=== PATIENT | male | born 1940 | race Caucasian/White ===

== ENCOUNTER → 2016-05-20 | Outpatient (CLI) | payer MEDICARE | END | disposition home or self-care (01) | LOC: PCVCCLINIC 09:50 | PROVIDERS: ATTEND Internal Medicine | DX: I48.91 Unspecified atrial fibrillation (principal); E78.5 Hyperlipidemia, unspecified; I71.2 Thoracic aortic aneurysm, without rupture; I10 Essential (primary) hypertension; Z79.01 Long term (current) use of anticoagulants | CPT/HCPCS: 80061; 93005; G0463 ==

== ENCOUNTER → 2016-12-10 | Outpatient (CLI) | payer MEDICARE ==
--- NOTE | 2016-12-10 12:07 | PCVCIMAG ---
APPROVED REPORT Study performed: 12/10/2016 10:48:43 EXAM: Comprehensive 2D, Doppler, and color-flow Echocardiogram Patient Location: Echo lab Status: routine BSA: 2.42 HR: 88 bpmBP: 134/82 mmHg Rhythm: Atrial Fibrillation Other Information Study Quality: Good Indications Atrial Fibrillation Thoracic aneurysm 2D Dimensions LVEF(%): 46.71 (>50%) IVSd: 10.39 (7-11mm)LVOT Diam: 21.81 (18-24mm) LVDd: 55.99 mm PWd: 10.97 (7-11mm)Ascending Ao: 44.51 (22-36mm) LVDs: 42.73 (25-40mm) Left Atrium: 53.86 (27-40mm) Aortic Root: 35.39 mm LV Single Plane 4CH: 51.07 % LV Single Plane 2CH: 54.37 %Hedrick's LVEF: 52.72 % Biplane EF: 53.1 % Volumes Left Atrial Volume (Systole) Single Plane 4CH: 132.04 mLSingle Plane 2CH: 105.17 mL Biplane LA Volume: 119.00 mLLA ESV Index: 49.00 mL/m2 Aortic Valve AoV Peak Abundio.: 1.65 m/s AO Peak Gr.: 11.91 mmHgLVOT Max P.57 mmHg LVOT Max V: 0.76 m/s ZHAO Vmax: 1.72 cm2 AI Vmax: 3.55 m/s AI [place]: 2.19 m/s2 AI PHT: 483.12 ms Mitral Valve MV E Max Abundio.: 1.29 m/s MV Max Abundio.: 5.17 m/s MV Mean Abundio.: 4.14 m/s MV PHT: 46.39 ms MVA (PHT): 4.74 cm2 TDI E/Lateral E': 9.92E/Medial E': 14.33 Medial E' Abundio.: 0.09 m/s Lateral E' Abundio.: 0.13 m/s Pulmonary Valve PV Peak Abudnio.: 0.71 m/sPV Peak Gr.: 2.05 mmHg Tricuspid Valve TR Peak Abundio.: 2.57 m/s TR Peak Gr.: 26.41 mmHg TV Vmax: 0.79 m/sPA Pressure: 34.00 mmHg Left Ventricle The left ventricle is normal size. There is normal LV segmental wall motion. Mild concentric left ventricular hypertrophy. Left ventricular systolic function is normal. LVEF is 50-55%. This study is not technically sufficient to allow evaluation of the LV diastolic function due to atrial fibrillation. Right Ventricle The right ventricle is normal size. The right ventricular systolic function is normal. Atria Left atrium is severely dilated. Right atrium is moderately dilated. Aortic Valve Aortic valve is trileaflet, mildly sclerotic. Mild aortic regurgitation. There is no aortic valvular stenosis. Mitral Valve Mild mitral annular calcification Mild to moderate mitral regurgitation. No evidence of mitral valve stenosis. Tricuspid Valve The tricuspid valve is normal in structure. There is mild tricuspid valve regurgitation noted with a PA pressure of 34 mmHg.. Pulmonic Valve The pulmonary valve is normal in structure. There is no pulmonic valvular regurgitation. Great Vessels The aortic root is normal in size. The ascending aorta is mildly dilated at 4.6 cm. Aortic arch is dilated IVC is normal in size and collapses with >50% inspiration Pericardium There is no pericardial effusion. There is no pleural effusion. <Conclusion> Left ventricular systolic function is normal. There is normal LV segmental wall motion. LVEF 50-55%. Left atrium is severely dilated. Aortic valve is trileaflet, mildly sclerotic, no stenosis. Mild aortic regurgitation. Mild mitral annular calcifiction. Mild to moderate mitral regurgitation. Thoracic aortic aneurysm 4.6cm, unchanged There is no pericardial effusion.
== END | disposition home or self-care (01) ==
LOC: PCVCIMAG 10:16
PROVIDERS: ATTEND Internal Medicine
DX: I71.2 Thoracic aortic aneurysm, without rupture (principal); I08.3 Combined rheumatic disorders of mitral, aortic and tricuspid valves; I48.2 Chronic atrial fibrillation; E78.5 Hyperlipidemia, unspecified; Z79.01 Long term (current) use of anticoagulants; Z86.73 Personal history of transient ischemic attack (TIA), and cerebral infarction without residual deficits
CPT/HCPCS: 80061; 93005; 93306; G0463

== ENCOUNTER → 2017-06-10 | Outpatient (CLI) | payer MEDICARE | END | disposition home or self-care (01) | LOC: PCVCCLINIC 11:32 | DX: I48.2 Chronic atrial fibrillation (principal); I71.2 Thoracic aortic aneurysm, without rupture; E78.5 Hyperlipidemia, unspecified; I65.23 Occlusion and stenosis of bilateral carotid arteries; R94.31 Abnormal electrocardiogram [ECG] [EKG]; Z79.899 Other long term (current) drug therapy | CPT/HCPCS: 80061; 93005; G0463 ==

== ENCOUNTER → 2018-01-11 | Outpatient (CLI) | payer MEDICARE ==
--- NOTE | 2018-01-11 09:11 | PCVCIMAG ---
APPROVED REPORT Indications Stenosis Risk Factors TIA/CVA History Hyperlipidemia Doppler Spectral Velocity Analysis PSV / EDVPSV / EDV ECA (R) 46 / 6 cm/sECA (L) 49 / 13 cm/s dICA (R) 64 / 18 cm/sdICA (L) 52 / 19 cm/s Caleb (R) 69 / 14 cm/smICA (L) 66 / 22 cm/s pICA (R) 40 / 10 cm/spICA (L) 68 / 23 cm/s Bulb (R) 51 / 10 cm/sBulb (L) 61 / 15 cm/s dCCA (R) 53 / 10 cm/sdCCA (L) 74 / 15 cm/s mCCA (R) 72 / 13 cm/smCCA (L) 87 / 15 cm/s Vert (R) 36 / 8 cm/sVert (L) 50 / 14 cm/s ICA/CCA 0.96ICA/CCA 0.79 Basic Measurements Blood Pressure: Pulses: Right Left RightLeft Brachial(Sitting) 124/01muGn252/82mmHgTemporal Real Time B-Mode Imaging Vert. (R)AntegradeVert. (L)Antegrade Findings The right carotid bulb has mild plaque. The right proximal internal carotid artery shows no significant stenosis. The right common carotid artery shows no significant stenosis. The right external carotid artery shows no significant stenosis. The left carotid bulb has mild plaque. The left proximal internal carotid artery shows <40% stenosis. The left common carotid artery shows no significant stenosis. The left external carotid artery shows no significant stenosis. Conclusion 1. Right internal carotid with mild plaquing 2. Left internal carotid (<40% stenosis) 3. Antegrade vertebral flow
--- NOTE | 2018-01-11 09:19 | PCVCIMAG ---
APPROVED REPORT Study performed: 01/11/2018 08:21:12 EXAM: Comprehensive 2D, Doppler, and color-flow Echocardiogram Patient Location: Echo lab Status: routine BSA: 2.45 HR: 92 bpmBP: 130/80 mmHg Rhythm: Atrial Fibrillation Other Information Study Quality: Adequate Indications Atrial Fibrillation Thoracic Aortic Aneurysm 2D Dimensions IVSd: 14.43 (7-11mm)LVOT Diam: 28.36 (18-24mm) LVDd: 51.13 mm PWd: 11.59 (7-11mm)Ascending Ao: 45.46 (22-36mm) LVDs: 41.86 (25-40mm) Left Atrium: 45.28 (27-40mm) Aortic Root: 45.28 mm LV Single Plane 4CH: 52.26 % LV Single Plane 2CH: 48.02 % Biplane EF: 49.4 % Volumes Left Atrial Volume (Systole) Single Plane 4CH: 98.48 mLSingle Plane 2CH: 104.12 mL LA ESV Index: 44.00 mL/m2 Aortic Valve AoV Peak Abundio.: 1.89 m/s AO Peak Gr.: 14.22 mmHgLVOT Max P.95 mmHg AO Mean Gr.: 9.62 mmHg AO V2 Mean: 1.49 m/sLVOT Max V: 0.70 m/s AO V2 VTI: 39.75 cm ZHAO Vmax: 2.33 cm2 AI Vmax: 3.51 m/s AI [place]: 1.50 m/s2 AI PHT: 679.46 ms Mitral Valve E/A Ratio: 1.1 MV E Max Abundio.: 1.25 m/s MV A Abundio.: 1.18 m/s Pulmonary Valve PV Peak Gr.: 1.96 mmHg Tricuspid Valve TR Peak Abundio.: 2.71 m/s TR Peak Gr.: 29.55 mmHg Left Ventricle The left ventricle is normal size. There is normal LV segmental wall motion. There is normal left ventricular wall thickness. Left ventricular ejection fraction is mildly decreased. LVEF is 45-50%. This study is not technically sufficient to allow evaluation of the LV diastolic function due to atrial fibrillation. Right Ventricle The right ventricle is normal size. The right ventricular systolic function is normal. Atria Left atrium is moderately dilated. The right atrium size is normal. Aortic Valve The aortic valve is mildly calcified, trileaflet Mild aortic regurgitation. There is no aortic valvular stenosis. Mitral Valve The mitral valve is normal in structure. Mild mitral regurgitation. No evidence of mitral valve stenosis. Tricuspid Valve The tricuspid valve is normal in structure. Trace tricuspid regurgitation. Pulmonary artery pressure is 36mmHg. Pulmonic Valve The pulmonary valve is normal in structure. There is no pulmonic valvular regurgitation. Great Vessels The aortic root is normal in size. Ascending aorta is dilated measuring 4.6cm. IVC is normal in size and collapses >50% with inspiration. Pericardium There is no pericardial effusion. <Conclusion> Left ventricular ejection fraction is lower limits of normal. LVEF is 45-50%. Left atrium is moderately dilated. The aortic valve is mildly calcified, trileaflet. Mild aortic regurgitation, no stenosis. The mitral valve is normal in structure. Mild mitral regurgitation. Trace tricuspid regurgitation. Pulmonary artery pressure is 36 mmHg. Ascending aorta is dilated measuring 4.6cm. There is no pericardial effusion.
== END | disposition home or self-care (01) ==
LOC: PCVCIMAG 10:19
PROVIDERS: ATTEND Internal Medicine
DX: I65.23 Occlusion and stenosis of bilateral carotid arteries (principal); I08.2 Rheumatic disorders of both aortic and tricuspid valves; I48.2 Chronic atrial fibrillation; I71.2 Thoracic aortic aneurysm, without rupture; E78.5 Hyperlipidemia, unspecified
CPT/HCPCS: 80061; 93005; 93306; 93880; G0463

== ENCOUNTER → 2018-08-16 | Outpatient (CLI) | payer MEDICARE | END | disposition home or self-care (01) | LOC: PCVCCLINIC 15:30 | PROVIDERS: ATTEND Internal Medicine | DX: I48.2 Chronic atrial fibrillation (principal); I71.2 Thoracic aortic aneurysm, without rupture; I65.23 Occlusion and stenosis of bilateral carotid arteries; E78.5 Hyperlipidemia, unspecified; R94.31 Abnormal electrocardiogram [ECG] [EKG]; Z79.01 Long term (current) use of anticoagulants; Z79.899 Other long term (current) drug therapy | CPT/HCPCS: 36415; 80061; 93005; G0463 ==